=== PATIENT | male | born 1985 | race Hispanic/Latino ===

== ENCOUNTER 2018-11-04 22:50 | Emergency (ER) | payer SELFPAY ==
--- NOTE | 2018-11-04 23:18 | RAD ---
AP VIEW CHEST: 11/04/18 HISTORY: Shortness of breath. AP view chest is obtained on 11/04/18. The lungs are well aerated. No evidence of active intrathoracic disease seen. No evidence of effusion s, pneumonia or pneumothorax seen. IMPRESSION: Unremarkable AP view chest. POS: [facility]
[2018-11-04 23:44] LABS: #Eosinphils 0.2 thou/uL (0.0-0.7); #Lymphocytes 1.5 thou/uL (1.20-3.40); #Monocytes 0.6 thou/uL (0.11-0.59); #Neutrophils 4.2 thou/uL (1.40-6.50); %Basophils 0.6 % (0.0-1.0); %Eosinophils 2.7 % (0.0-10.0); %Lymphocytes 23.5 % (21.0-51.0); %Monocytes 9.1 % (0.0-10.0); %Neutrophils 64.2 % (42.0-75.0); Hemoglobin 16.5 g/dL (14.0-18.0); Mean Corpuscular HGB CONC 34.9 g/dL (32.0-36.0); Mean Corpuscular Hemoglobin 30.9 pg (27.0-31.0); Mean Corpuscular Volume 88.5 fL (78.0-98.0); Mean Platelet Volume 7.1 fL (7.4-10.4); Platelet Count 206 thou/uL (130-400); RBC Distribution Width 13.2 % (11.5-14.5); Red Blood Cell (RBC) Count 5.35 mill/uL (4.70-6.10); White Blood Cell (WBC) Count 6.5 thou/uL (4.8-10.8)
[2018-11-05] MEDS ORDERED: Mag-Al 1200 mg/1200 mg/30 ML UDCUP ONE
[2018-11-05] MEDS ORDERED: Lidocaine Viscous Sol 2% 15 ml UD Cup ONE
[2018-11-05 00:07] LABS: ALT (SGPT) 47 U/L (8-55); AST (SGOT) 56 U/L (5-34); Albumin 4.6 g/dL (3.5-5.0); Alkaline Phosphatase 96 U/L (40-150); Anion Gap 15 mmol/L (10-20); BUN (Urea Nitrogen) 21 mg/dL (8.9-20.6); Bilirubin, Total 0.9 mg/dL (0.2-1.2); Calc. Creatinine Clearance 0 mL/min (70-130); Calcium 9.8 mg/dL (7.8-10.44); Carbon Dioxide 25 mmol/L (22-29); Chloride 101 mmol/L (98-107); Estimated GFR-MDRD Greater than 90; Globulin 3.4 g/dL (2.4-3.5); Glucose 103 mg/dL (70-105); Lipase 13 U/L (8-78); Potassium 3.7 mmol/L (3.5-5.1); Sodium 137 mmol/L (136-145)
== END 2018-11-05 00:35 | disposition home or self-care (01) ==
LOC: ERS 22:50
DX: R07.89 Other chest pain (principal); F10.10 Alcohol abuse, uncomplicated
CPT/HCPCS: 36415; 71045; 80053; 83690; 84484; 85025; 93005

== ENCOUNTER 2018-11-05 20:35 | Emergency (ER) | payer SELFPAY ==
[2018-11-05] MEDS ORDERED: Sucralfate 1 GM/10 ML UDCUP ONE (21:48)
[2018-11-05] MEDS ORDERED: Lorazepam 1 MG TAB ONE (22:36)
== END 2018-11-06 00:20 | disposition home or self-care (01) ==
LOC: ERS 20:35
DX: R07.89 Other chest pain (principal)
CPT/HCPCS: 93005

== ENCOUNTER 2018-11-08 17:04 | Emergency (ER) | payer SELFPAY ==
[2018-11-08] MEDS ORDERED: Acetaminophen 500 MG TAB ONE (21:04)
[2018-11-08] MEDS ORDERED: Metoclopramide HCl 10 MG/2 ML VIAL ONE (21:04)
--- NOTE | 2018-11-08 21:38 | CT ---
Head CT without contrast 11/08/2018: COMPARISON: NONE HISTORY: Abnormal balance and vision, headaches TECHNIQUE: Axial CT imaging at 5 mm intervals from vertex through skull base without contrast FINDINGS: The imaged paranasal sinuses/mastoid air cells demonstrate no acute findings. The mastoid a ir cells on the right are hypoplastic. No acute osseous abnormality is noted. No intracranial hemorrhage, midline shift, mass effect, or ventricular enlargement. IMPRESSION: No acute findings.
== END 2018-11-08 22:19 | disposition home or self-care (01) ==
LOC: ERS 17:04
DX: R51 Headache (principal)
CPT/HCPCS: 70450; 96365; J2765

== ENCOUNTER 2019-02-26 02:26 | Emergency (ER) | payer SELFPAY | END 2019-02-26 03:31 | disposition home or self-care (01) | LOC: ERS 02:26 | DX: T40.7X1A Poisoning by cannabis (derivatives), accidental (unintentional), initial encounter (principal) | CPT/HCPCS: 96360 ==

== ENCOUNTER 2020-01-09 20:59 | Emergency (ER) | payer OTHER, SELFPAY ==
[2020-01-10 14:22] LABS: SARS-CoV-2 MS2 Positive; SARS-CoV-2 N Gene Negative; SARS-CoV-2 S Gene Negative; SARS-CoV-2 orf1ab Negative
== END 2020-01-09 21:50 | disposition home or self-care (01) ==
LOC: ERS 20:59
DX: U07.1 COVID-19 (principal)
CPT/HCPCS: 87635; 99284; U0003

== ENCOUNTER 2020-01-20 14:05 | Emergency (ER) | payer OTHER, SELFPAY ==
[2020-01-21 12:08] LABS: SARS-CoV-2 MS2 Positive; SARS-CoV-2 N Gene Positive; SARS-CoV-2 S Gene Positive; SARS-CoV-2 orf1ab Positive
== END 2020-01-20 14:30 | disposition home or self-care (01) ==
LOC: ERS 14:05
DX: U07.1 COVID-19 (principal)
CPT/HCPCS: 87635; U0003